=== PATIENT | male | born 1960 | race Caucasian/White ===

== ENCOUNTER 2023-06-04 09:27 | Outpatient (OUT) | payer OTHER, SELFPAY ==
[2023-06-04 09:50] LABS: Basophils Absolute Auto 0.1 10^3/uL (0.0-0.1); Basophils Percent Auto 0.8 % (0.2-2.0); Eosinophils Absolute Auto 0.4 10^3/uL (0.0-0.7); Eosinophils Percent Auto 4.6 % (0.9-7.0); Hematocrit 43.7 % (42.0-54.0); Hemoglobin 15.6 g/dL (14.0-18.0); Immature Granulocytes Abs Auto 0.02 10^3/uL (0.00-0.03); Immature Granulocytes Pct Auto 0.2 % (0.0-0.5); Lymphocytes Absolute Auto 3.3 10^3/uL (1.2-3.8); Lymphocytes Percent Auto 35.6 % (20.5-60.0); Mean Corpuscular HGB Conc 35.7 g/dL (29.9-35.2); Mean Corpuscular Hemoglobin 33.5 pg (25.9-34.0); Mean Corpuscular Volume 93.8 fL (80.0-94.0); Mean Platelet Volume 9.5 fL (9.5-13.5); Monocytes Absolute Auto 1.1 10^3/uL (0.3-0.8); Monocytes Percent Auto 11.8 % (1.7-12.0); Neutrophils Absolute Auto 4.4 10^3/uL (1.4-6.5); Platelet Count 234 10^3/uL (150-450); Red Blood Count 4.66 10^6/uL (4.70-6.10); Red Cell Distribution Width 13.4 % (11.0-15.0); White Blood Count 9.3 10^3/uL (4.0-11.0)
[2023-06-04 10:26] LABS: Anion Gap 14.9; BUN Creatinine Ratio 16.1; Calcium 9.4 mg/dL (8.5-10.1); Carbon Dioxide 21.8 mmol/L (21.0-32.0); Chloride 97 mmol/L (98-107); Cholesterol 192 mg/dL (<=200); Estimated GFR (African America >60 (>=60); Estimated GFR (Non-African Ame >60 (>=60); Glucose 109 mg/dL (74-106); HDL Cholesterol 65 mg/dL (40-60); Potassium 4.7 mmol/L (3.5-5.1); Sodium 129 mmol/L (136-145); Triglycerides 56 mg/dL (<=150); VLDL CHOLESTEROL 11.2 mg/dL
[2023-06-04 10:39] LABS: Prostate Specific Antigen Scrn 1.34 ng/mL (<=4.00)
== END 2023-06-04 09:28 | disposition home or self-care (01) ==
LOC: LAB 09:29
PROVIDERS: PCP Internal Medicine; Visit Provider Internal Medicine
DX: Z00.00 Encounter for general adult medical examination without abnormal findings (principal); Z12.5 Encounter for screening for malignant neoplasm of prostate
CPT/HCPCS: 36415; 80048; 80061; 85025; G0103

== ENCOUNTER 2024-07-26 10:11 | Outpatient (OUT) | payer OTHER, SELFPAY ==
[2024-07-26 10:42] LABS: Hematocrit 43.7 % (42.0-54.0); Hemoglobin 15.4 g/dL (14.0-18.0); Mean Corpuscular HGB Conc 35.2 g/dL (29.9-35.2); Mean Corpuscular Hemoglobin 33.8 pg (25.9-34.0); Mean Corpuscular Volume 95.8 fL (80.0-94.0); Mean Platelet Volume 9.2 fL (9.5-13.5); Platelet Count 295 10^3/uL (150-450); Red Blood Count 4.56 10^6/uL (4.70-6.10); Red Cell Distribution Width 12.7 % (11.0-15.0); White Blood Count 11.1 10^3/uL (4.0-11.0)
[2024-07-26 11:28] LABS: Atypical Lymphocytes Abs Man 0.44; Eosinophils Absolute Manual 0.33 10^3/uL (0.00-0.70); Lymphocytes Absolute Manual 4.55 10^3/uL (1.20-3.80); Monocytes Absolute Manual 1.22 10^3/uL (0.30-0.80); Segmented Neut Absolute Manual 4.55 10^3/uL (1.4-6.5)
[2024-07-26 12:43] LABS: Alanine Aminotransferase 61 U/L (16-63); Alkaline Phosphatase 89 U/L (46-116); Anion Gap 14.1; Aspartate Amino Transferase 36 U/L (15-37); Bilirubin Total 0.5 mg/dL (0.2-1.0); Calcium 9.5 mg/dL (8.5-10.1); Chloride 94 mmol/L (98-107); Chol HDL Ratio 3.3; Cholesterol 191 mg/dL (<=200); Estimated GFR (African America >60 (>=60 mL/min/1.73m^2); Estimated GFR (Non-African Ame >60 (>=60 mL/min/1.73m^2); Glucose 105 mg/dL (74-106); HDL Cholesterol 58 mg/dL (40-60); LDL Cholesterol Calculated 122.6 mg/dL; Potassium 4.1 mmol/L (3.5-5.1); Sodium 130 mmol/L (136-145); Triglycerides 52 mg/dL (<=150); VLDL CHOLESTEROL 10.4 mg/dL
[2024-07-26 17:16] LABS: Prostate Specific Antigen Scrn 1.25 ng/mL (<=4.00)
== END 2024-07-26 10:12 | disposition home or self-care (01) ==
LOC: LAB 10:14
PROVIDERS: PCP Internal Medicine; Visit Provider Internal Medicine
DX: E78.00 Pure hypercholesterolemia, unspecified (principal); I10 Essential (primary) hypertension; Z12.5 Encounter for screening for malignant neoplasm of prostate
CPT/HCPCS: 36415; 80053; 80061; 85007; 85027; G0103